=== PATIENT | female | born 1990 | race Caucasian/White ===

== ENCOUNTER 2017-04-08 14:01 | Emergency (ER) | payer MEDICAID ==
[~2017-04-08] VITALS: Wt 69.0 kg
[~2017-04-08 14:01] MED LIST: ACET500C5 PO; CEPH250S33 PO; ERYT1OIN6 LEFT EYE; IBUP-1542 PO; NITR-58 PO
[2017-04-08] MEDS ORDERED: ACETAMINOPHEN 325 MG TAB PO STA (14:25)
[2017-04-08] MEDS ORDERED: SOD CHLORIDE 0.9% 1,000 ML IV STA (14:25)
--- NOTE | 2017-04-08 14:32 | ERD ---
ER Documentation Chief Complaint Date/Time DATE: 04/08/17 Chief Complaint Abdominal pain HPI The patient is a 26-year-old female, A0, who presents to the Emergency Department with complaint of abdominal pain. Last menstrual period unknown, though patient believes that she is approximately 13-14 weeks . The patient reports that her pain started several days ago, with onset of abdominal pain localized to the periumbilical region. The pain is constant, and gradually worsening. She rates her current pain a 6 out of 10, but has not yet taken any medication for pain relief. She discussed presence of this pain with her primary medical provider/[facility]OR [facility] TERM CARE, but no workup was performed , as she was told that her pain was possibly normal. She denies any fevers, sweats, chills, vomiting, diarrhea. Denies any black or bloody stools. Denies dysuria, hematuria or flank pain. Denies any vaginal bleeding or new vaginal discharge. Denies dizziness, weakness, chest pain, palpitations, shortness of breath. No other complaints at this time. ROS All systems reviewed and are negative except as per history of present illness. Medications Home Meds Active Scripts Acetaminophen* (Tylenol*) 325 Mg Tablet, 1 TAB PO Q6 Y for PAIN AND OR ELEVATED TEMP, #20 TAB Prov:THIERRY MCCLELLAN PA-C 04/08/17 Famotidine* (Pepcid*) 20 Mg Tablet, 20 MG PO BID, #20 TAB Prov:THIERRY MCCLELLAN PA-C 04/08/17 Acetaminophen* (Tylophen*) 500 Mg Capsule, 1 CAP PO Q6H Y for PAIN AND OR ELEVATED TEMP, #20 CAP Prov:ANA ALVA NP 11/08/16 Nitrofurantoin Monohyd Macrocr* (Macrobid*) 100 Mg Capsr, 100 MG PO BID for 7 Days, CAP Prov:ANA ALVA NP 11/08/16 Erythromycin (Erythromycin Opth) 3.5 Gm Oint..gm., 1 APPLIC LEFT EYE QID for 7 Days, EA Prov:ELICEO WILHELM NP 05/04/16 Ibuprofen* (Motrin*) 600 Mg Tab, 600 MG PO Q6H Y for PAIN AND OR ELEVATED TEMP, #30 TAB Prov:ELICEO WILHELM NP 05/04/16 Cephalexin* (Cephalexin* Susp) 250 Mg/5 Ml Susp.recon, 500 MG PO Q6 for 10 Days , #1 BOTTLE Prov:ELICEO WILHELM HOLLY 05/04/16 Allergies Allergies: Coded Allergies: No Known Allergy (Unverified , 11/08/16) PMhx/Soc History of Surgery: No Anesthesia Reaction: No Hx Neurological Disorder: No Hx Respiratory Disorders: No Hx Cardiac Disorders: No Hx Psychiatric Problems: No Hx Miscellaneous Medical Probl: No Hx Alcohol Use: No Hx Substance Use: No Hx Tobacco Use: No Physical Exam Vitals Vital Signs Date Time Temp Pulse Resp B/P Pulse Ox O2 Delivery O2 Flow Rate FiO2 04/08/17 17:00 67 19 119/64 99 Room Air 04/08/17 14:05 98.5 81 20 110/52 98 Physical Exam GENERAL: Well-developed, well-nourished, in no acute distress HEENT: Head is normocephalic, atraumatic. No scleral pallor or icterus. Pupils equal, round and reactive to light. Conjunctiva pink. Moist mucous membranes. NECK: Supple. No masses, no tenderness, no lymphadenopathy. RESPIRATORY: Lungs are clear to auscultation bilaterally. No rales, rhonchi or wheezing. Equal breath sounds. Normal expiratory effort. CARDIOVASCULAR: Regular rate and rhythm. S1 and S2 normal. No murmurs, rubs, or gallops. GASTROINTESTINAL: Abdomen is soft and nondistended. Mild tenderness to palpation over the epigastrium and periumbilical region. No RUQ, LUQ, RLQ or LLQ tenderness. No guarding, no rebound tenderness. Normal bowel sounds. No gross peritonitis. Negative Manzano's sign. No tenderness at McBurney's point. FLANK: No CVA tenderness, no mass or swelling. BACK: No midline tenderness. EXTREMITIES: No clubbing, cyanosis, or edema. Normal skin perfusion. Full range of motion of both the upper and lower extremities bilaterally. Muscle tone is normal. No focal swelling or erythema. Distal pulses are palpable, 2+ bilaterally. Capillary refill is less than 2 seconds. NEUROLOGIC: The patient is alert, awake, and oriented x 3. No focal neurologic deficits. INTEGUMENT: Skin is clean, dry and intact. PSYCHIATRIC: Appropriate; Cooperative. Result Diagram: 04/08/17 1435 04/08/17 1435 Results 24 hrs Laboratory Tests Test 04/08/17 14:30 04/08/17 14:35 Urine Color LT. YELLOW Urine Clarity CLEAR Urine pH 5.5 Urine Specific [place] 1.010 Urine Ketones NEGATIVE Urine Nitrite NEGATIVE Urine Bilirubin NEGATIVE Urine Urobilinogen 0.2 E.U./dL Urine Leukocyte Esterase NEGATIVE Urine Hemoglobin NEGATIVE Urine Glucose NEGATIVE% Urine Total Protein NEGATIVE White Blood Count 9.110^3/ul Red Blood Count 4.5910^6/ul Hemoglobin 13.2g/dl Hematocrit 37.8% Mean Corpuscular Volume 82.4fl Mean Corpuscular Hemoglobin 28.8pg Mean Corpuscular Hemoglobin Concent 34.9g/dl Red Cell Distribution Width 11.8% Platelet Count 50575^3/UL Mean Platelet Volume 9.7fl Neutrophils % 79.3% Lymphocytes % 14.6% Monocytes % 4.9% Eosinophils % 0.5% Basophils % 0.3% Nucleated Red Blood Cells % 0.0/100WBC Neutrophils # 7.210^3/ul Lymphocytes # 1.310^3/ul Monocytes # 0.510^3/ul Eosinophils # 0.110^3/ul Basophils # 0.010^3/ul Nucleated Red Blood Cells # 0.010^3/ul Sodium Level 137mmol/L Potassium Level 3.7mmol/L Chloride Level 108mmol/L Carbon Dioxide Level 24mmol/L Anion Gap 9 Blood Urea Nitrogen 9mg/dl Creatinine 0.54mg/dl Glucose Level 110mg/dl Calcium Level 9.4mg/dl Total Bilirubin 0.3mg/dl Direct Bilirubin 0.00mg/dl Indirect Bilirubin 0.3mg/dl Aspartate Amino Transf (AST/SGOT) 28IU/L Alanine Aminotransferase (ALT/SGPT) 29IU/L Alkaline Phosphatase 83IU/L Total Protein 7.6g/dl Albumin 3.9g/dl Globulin 3.70g/dl Albumin/Globulin Ratio 1.05 Lipase 92U/L Beta HCG, Quantitative 69778.0mIU/ml Current Medications Medications (Trade) Dose Ordered Sig/Comfort Route PRN Reason Start Time Stop Time Status Last Admin Dose Admin Sodium Chloride (NS) 1,000 ml @ 1,000 mls/hr Q1H STAT IV 04/08/17 14:25 04/08/17 15:24 DC 04/08/17 14:36 Acetaminophen (Tylenol Tab) 650 mg ONCE STAT PO 04/08/17 14:25 04/08/17 14:27 DC 04/08/17 14:36 Procedures/MDM Diagnostic Tests and Interpretation: PROCEDURE: US Abdomen. CLINICAL INDICATION: Abdominal pain. TECHNIQUE: Multiple real-time images were acquired of the patient's abdomen and retroperitoneum utilizing a high resolution transducer. COMPARISON: None FINDINGS: The liver measures 14.8 cm in length. No pancreatic mass or intrahepatic biliary ductal dilatation is identified. The gallbladder wall measures 1 mm and is unremarkable. The hepatic and portal veins are patent. The liver is echogenic. The common bile duct measured 3.6 mm which is normal. The inferior vena cava is patent. The pancreas is obscured by bowel gas. The right kidney measures 9.5 cm in length. IMPRESSION: 1. Increased echogenicity of the liver is noted and most commonly as a result of fatty infiltration. Steatohepatitis, vacuolar degeneration and cirrhosis of the liver are other causes. 2. Otherwise, unremarkable limited abdominal sonogram. Physician Kelly Date Time Electronically viewed and signed by Physician Kelly on 04/08/2017 15:21 Emergency Department Course: The patient was stable throughout the ER course. The patient was given Tylenol for pain control. Laboratory work and diagnostic imaging was performed. On reassessment, the patient was sitting comfortably and stated that she no longer had any pain. The case was reviewed and discussed with Dr. Garcia, ED supervising physician, who evaluated the patient bedside and agrees with management and plan for discharge home. Medical Decision Making: This is a 26-year-old female presenting to the Emergency Department with abdominal pain. The patient had mild tenderness to palpation of the epigastric and periumbilical abdomen on physical examination. Vital signs were normal. The differential diagnosis includes, but is not limited to molar , thyrotoxicosis, cholecystitis, ectopic , gastroenteritis, pancreatitis, appendicitis, hepatitis, peptic ulcer disease, pyelonephritis, HELLP syndrome, urinary tract infection, depression, septic , ovarian torsion, endometriosis, PID, cervicitis, ovarian cyst. No significant laboratory abnormalities were noted on analysis. Urinalysis with no nitrties, no urine leukocyte esterase, no evidence of urinary tract infection or pyelonephritis. Patient with no lower abdominal pain, no pelvic pain, no new discharge, doubt TOA, PID, cervicitis. No tenderness at McBurney' s point or in the RLQ, no fevers, no vomiting, doubt appendicitis. Placenta previa noted on ultrasound, though likely not the cause of the patient's symptoms. Otherwise, no evidence of torsion and clinical presentation inconsistent with torsion/cyst. Negative Manzano's sign, no RUQ tenderness, no evidence of gallstones, doubt cholecystitis, cholangitis, choledocholithiasis. Presentation/results not consistent with HELLP or preeclampsia. LFTs within normal limits, doubt hepatitis. Lipase normal, doubt pancreatitis. No vomiting or diarrhea, doubt gastroenteritis. No adnexal masses seen, presentation not consistent with ectopic . No evidence of acute/surgical abdomen. After rest and administration of Tylenol the patient reports no new complaints, and decreased pain. Upon my review and interpretation of the patient's presentation , clinical data, and overall ER course, I believe the patient's symptoms are most consistent with abdominal pain, uncertain etiology, placenta previa, and live first trimester intrauterine . At this time, the patient is in stable condition, and therefore she can be discharged home with a prescription for Tylenol and Pepcid and given strict return precautions for signs of deteriorating or worsening condition. The patient is advised to follow up with her [facility]OR [facility]M CARE within 1-2 days for reevaluation and further management, or return to the ER sooner for any worsening symptoms. I shared all laboratory and diagnostic imaging studies with the patient at length and in great detail, and the patient verbally understands and agrees with the plan for further observation and care as an outpatient. At the time of discharge, all questions were answered. Departure Diagnosis: Primary Impression: Abdominal pain in Trimester: first trimester Qualified Code: O26.891 - Abdominal pain in , first trimester Additional Impression: Placenta previa Trimester: first trimester Qualified Code: O44.01 - Placenta previa, first trimester Condition: Stable Patient Instructions: Abdominal Pain, Abdominal Pain, Unknown Cause, (Female) Additional Instructions: Llame al doctor SHARON y kelly zack ERICK PARA DENTRO DE 1-2 COONEY.Dgale a la secretaria que nosotros le instruimos hacer esta erick.Avise o llame si amezquita condicin se empeora antes de la erick. Regresa aqui si peor o no mejor. THIERRY MCCLELLAN PA-C April 08, 2017 14:32
[2017-04-08 14:52] LABS: ADD SCAN DIFF NO
[2017-04-08 14:54] LABS: BASOPHILS % 0.3 % (0.0-2.0); EOSINOPHILS # 0.1 10^3/ul (0.0-0.5); EOSINOPHILS % 0.5 % (0.0-7.0); HEMATOCRIT 37.8 % (37.0-47.0); HEMOGLOBIN 13.2 g/dl (12.0-16.0); LYMPHOCYTES # 1.3 10^3/ul (0.8-2.9); LYMPHOCYTES % 14.6 % (15.0-51.0); MEAN CORPUSCULAR HEMOGLOBIN 28.8 pg (29.0-33.0); MEAN CORPUSCULAR HGB CONC 34.9 g/dl (32.0-37.0); MEAN CORPUSCULAR VOLUME 82.4 fl (82.0-101.0); MEAN PLATELET VOLUME 9.7 fl (7.4-10.4); MONOCYTE # 0.5 10^3/ul (0.3-0.9); MONOCYTES % 4.9 % (0.0-11.0); NEUTROPHIL # 7.2 10^3/ul (1.6-7.5); NEUTROPHILS % 79.3 % (39.0-77.0); PLATELET COUNT 257 10^3/UL (140-415); RED BLOOD COUNT 4.59 10^6/ul (4.20-5.40); RED CELL DISTRIBUTION WIDTH 11.8 % (11.5-14.5); WHITE BLOOD COUNT 9.1 10^3/ul (4.8-10.8)
[2017-04-08 15:01] LABS: ADD UMIC NO; URINE BILIRUBIN (Dip) NEGATIVE (NEGATIVE); URINE BLOOD (Dip) NEGATIVE (NEGATIVE); URINE COLOR LT. YELLOW (YELLOW); URINE GLUCOSE (Dip) NEGATIVE (NEGATIVE); URINE KETONES (Dip) NEGATIVE (NEGATIVE); URINE LEUKOCYTE ESTERASE (Dip) NEGATIVE (NEGATIVE); URINE NITRITE (Dip) NEGATIVE (NEGATIVE); URINE TOTAL PROTEIN (Dip) NEGATIVE (NEGATIVE); URINE UROBILINOGEN (Dip) 0.2 E.U./dL (0.1-1.0)
[2017-04-08 15:10] LABS: ALBUMIN 3.9 g/dl (3.3-4.9); POTASSIUM 3.7 mmol/L (3.5-5.1)
[2017-04-08 15:12] LABS: BILIRUBIN,INDIRECT 0.3 mg/dl (0-1.1); BILIRUBIN,TOTAL 0.3 mg/dl (0.2-1.3); CREATININE 0.54 mg/dl (0.44-1.00)
[2017-04-08 15:13] LABS: ALBUMIN/GLOBULIN RATIO 1.05; CALCIUM 9.4 mg/dl (8.4-10.2); TOTAL PROTEIN 7.6 g/dl (6.1-8.1)
--- NOTE | 2017-04-08 15:21 | RADRPT ---
PROCEDURE: US Abdomen. CLINICAL INDICATION: Abdominal pain. TECHNIQUE: Multiple real-time images were acquired of the patient's abdomen and retroperitoneum ut ilizing a high resolution transducer. COMPARISON: None FINDINGS: The liver measures 14.8 cm in length. No pancreatic mass or intrahepatic biliary ductal dilatation is identified. The gallbladder wall measures 1 mm and is unremarkable. The hepatic and portal vein s are patent. The liver is echogenic. The common bile duct measured 3.6 mm which is normal. The inferior vena cava is patent. The pancreas is obscured by bowel gas. The right kidney measures 9.5 cm in length. IMPRESSION: 1. Increased echogenicity of the liver is noted and most commonly as a result of fatty infiltration. Steatohepatitis, vacuolar degeneration and cirrhosis of the liver are other causes. 2. Otherwise, unremarkable limited abdominal sonogram. RPTAT:AAJJ Physician Kelly Date Time Electronically viewed and signed by Physician Kelly on 04/08/2017 15:21 SATNAM/
[2017-04-08] MEDS ORDERED: FAMO-18 PO (16:38)
[2017-04-08] MEDS ORDERED: ACET325T33 PO (16:38)
[2017-04-08 17:00] VITALS: BP 119/64; PULSE 67; RESP 19
== END 2017-04-08 17:01 | disposition home or self-care (01) ==
LOC: FTE 14:01
DX: O26.891 Other specified pregnancy related conditions, first trimester (principal); O44.01 Complete placenta previa NOS or without hemorrhage, first trimester; R10.33 Periumbilical pain; R10.13 Epigastric pain; Z3A.13 13 weeks gestation of pregnancy
CPT/HCPCS: 76705; 76801; 76817; 80053; 81003; 83690; 84702; 85025; 87086; J7030; Z7610; 36415

== ENCOUNTER 2017-07-24 06:30 | Outpatient (CLI) | payer MEDICAID ==
[~2017-07-24] VITALS: Ht 142.2 cm; Wt 63.4 kg
[~2017-07-24 06:30] MED LIST changes: +ACET325T33 PO; +FAMO-96 PO
[2017-07-24 07:09] VITALS: BP 93/48; PULSE 66; RESP 18
[2017-07-24] MEDS ORDERED: PREN-19 PO (07:13)
[2017-07-24] MEDS ORDERED: LACTATED RINGER'S 1,000 ML IV* SCH (08:00)
[2017-07-24 08:29] LABS: BASOPHILS % 0.3 % (0.0-2.0); EOSINOPHILS # 0.1 10^3/ul (0.0-0.5); EOSINOPHILS % 0.7 % (0.0-7.0); HEMATOCRIT 36.1 % (37.0-47.0); HEMOGLOBIN 12.1 g/dl (12.0-16.0); LYMPHOCYTES # 1.6 10^3/ul (0.8-2.9); LYMPHOCYTES % 15.6 % (15.0-51.0); MEAN CORPUSCULAR HEMOGLOBIN 29.5 pg (29.0-33.0); MEAN CORPUSCULAR HGB CONC 33.5 g/dl (32.0-37.0); MEAN PLATELET VOLUME 10.7 fl (7.4-10.4); MONOCYTE # 0.6 10^3/ul (0.3-0.9); MONOCYTES % 6.1 % (0.0-11.0); NEUTROPHILS % 75.7 % (39.0-77.0); PLATELET COUNT 205 10^3/UL (140-415); RED CELL DISTRIBUTION WIDTH 12.2 % (11.5-14.5); WHITE BLOOD COUNT 10.1 10^3/ul (4.8-10.8)
[2017-07-24 08:58] LABS: ADD UMIC NO; UR ASCORBIC ACID NEGATIVE (NEGATIVE); UR BILIRUBIN (Dip) NEGATIVE (NEGATIVE); UR BLOOD (Dip) NEGATIVE (NEGATIVE); UR CLARITY SLIGHTLY CLOUDY (CLEAR); UR COLOR YELLOW (YELLOW); UR GLUCOSE (Dip) NEGATIVE (NEGATIVE); UR KETONES (Dip) NEGATIVE (NEGATIVE); UR LEUKOCYTE ESTERASE (Dip) NEGATIVE Leu/ul (NEGATIVE); UR MUCUS FEW /HPF (NONE SEEN); UR NITRITE (Dip) NEGATIVE (NEGATIVE); UR RBC 1 /HPF (0-5); UR SPECIFIC GRAVITY (Dip) 1.026 (1.003-1.030); UR SQUAMOUS EPITHELIAL CELL FEW /HPF (FEW); UR TOTAL PROTEIN (Dip) NEGATIVE (NEGATIVE); UR UROBILINOGEN (Dip) NEGATIVE (NEGATIVE)
--- NOTE | 2017-07-24 09:24 | RADRPT ---
PROCEDURE: Limited obstetric ultrasound CLINICAL INDICATION: Pain , labor TECHNIQUE: Multiple transverse and longitudinal grayscale images of the pelvis were obtained cabrera sabdominally and transvaginally.. COMPARISON: 04/08/2017 FINDINGS: The cervix is closed with a length of 3.7 cm. There is a single viable intrauterine gestation. Cardiac activity is present with 135 beats per min [place]. There is a breech presentation. The placenta is posterior. There is no evidence for an abruption or placenta previa. RPTAT: AA IMPRESSION: Cervix length measures 3.7 cm. .Deniz Abreu MD, MD Date Time Electronically viewed and signed by .Deniz Abreu MD, on 07/24/2017 09:24 .S/
--- NOTE | 2017-07-24 10:55 | TRIAGE ---
OB Triage Datetime Report Generated by CPN: 07/24/2017 10:54 Datetime: 07/24/2017 10:00 Stage of : OB Triage Maternal Assessment Level of Consciousness: Fully Conscious Labor Evaluation Frequency: 1UC/HR Monitor Mode: External Duration (sec)2399: 70 Quality: Mild Resting Tone [place]: Relaxed Heart Rate FHR Baseline Rate: 135 Monitor Mode: External US Variability: Moderate 6-25 bpm Accelerations: 15X15 Decelerations: None Pain Assessment Pain Scale: 0 Pain Goal: 3 Vaginal Exam Membrane Status: Intact Vaginal Bleeding: None Datetime: 07/24/2017 09:00 Stage of : OB Triage Maternal Assessment Level of Consciousness: Fully Conscious Labor Evaluation Frequency: 3UC/HR Monitor Mode: External Duration (sec)2399: 60-90 Quality: Mild Resting Tone [place]: Relaxed Heart Rate FHR Baseline Rate: 135 Monitor Mode: External US Variability: Moderate 6-25 bpm Accelerations: 15X15 Decelerations: None Pain Assessment Pain Scale: 0 Pain Goal: 3 Vaginal Exam Membrane Status: Intact Vaginal Bleeding: None Datetime: 07/24/2017 08:00 Stage of : OB Triage Maternal Assessment Level of Consciousness: Fully Conscious Labor Evaluation Frequency: 4UC/HR Monitor Mode: External Duration (sec)2399: 50-70 Quality: Mild Resting Tone [place]: Relaxed Heart Rate FHR Baseline Rate: 135 Monitor Mode: External US Variability: Moderate 6-25 bpm Accelerations: 15X15 Decelerations: None Category: Category I Pain Assessment Pain Scale: 0 Pain Goal: 3 Vaginal Exam Membrane Status: Intact Vaginal Bleeding: None Datetime: 07/24/2017 06:58 Assessment Type: Triage Maternal Assessment Level of Consciousness: Fully Conscious DTR's/Clonus: DTRs 1+; No Clonus Headache: Denies Blurred Vision: No Respiratory Effort: Unlabored Breath Sounds, Left: Clear and Equal Breath Sounds, Right: Clear and Equal Nausea/Vomiting: Denies RUQ Epigastric Pain: Denies Lower Extremities Edema: None Degree: None Upper Extremities Edema: None Degree: None Facial Edema: None Fall Risk Assessment History of Falling: (0) No Secondary Diagnosis: (0) No Ambulatory Aid: (0) Bedrest/Nurse Assist IV Therapy: (0) No Gait: (0) Normal/Bedrest/Immobile Mental Status: (0) Oriented to Own Ability Fall Score: 0 Fall Risk Score Definition: No Risk: No action required Datetime: 07/24/2017 06:56 Time of Arrival: 07/24/2017 06:35 EGA: 29.4 Arrived By: Ambulatory Arrived From: Home Chief Complaint: ABD PAIN Movement: Present Contractions: Denies/Absent Rupture of Membranes: Denies Vaginal Bleeding: None Vaginal Discharge: Denies Recent Sexual Intercouse: Denies Abdominal Trauma: Not Applicable Patient Complaints: Other Time Provider Notified: 07/24/2017 07:32 Provider Notified: MADELINEAD (Annotations: Data stored by CPN on behalf of user) Initial Plan: EFM, FFN, CVL, UA, CBC, IV HYDRATION Datetime: 07/24/2017 06:51 Stage of : OB Triage Monitor Mode: External Monitor Mode: External US Comments: applied Datetime: 07/24/2017 06:47 Stage of : OB Triage
--- NOTE | 2017-07-24 10:58 | PN ---
Triage Information Date/Time Reason for visit: Abd/pelvic pain Weeks of Gestation 29 weeks /Para Diabetes: none Hypertention: none Objective Vital Signs Date Time Temp Pulse Resp B/P Pulse Ox O2 Delivery O2 Flow Rate FiO2 07/24/17 07:09 98.1 66 18 93/48 Room Air Heart Rate: 120's Heart Rate Comments Category I Contractions: >10 Minutes Apart Results/Medications Result Diagram: 07/24/17 0750 Results 24 hrs Laboratory Tests Test 07/24/17 06:40 07/24/17 07:50 Urine Color YELLOW Urine Clarity SLIGHTLY CLOUDY A Urine pH 6.0 Urine Specific [place] 1.026 Urine Ketones NEGATIVE Urine Nitrite NEGATIVE Urine Bilirubin NEGATIVE Urine Urobilinogen NEGATIVE Urine Leukocyte Esterase NEGATIVE Urine Microscopic RBC 1 Urine Microscopic WBC 3 Urine Squamous Epithelial Cells FEW Urine Mucus FEW A Urine Hemoglobin NEGATIVE Urine Glucose NEGATIVE Urine Total Protein NEGATIVE White Blood Count 10.1 Red Blood Count 4.10 L Hemoglobin 12.1 Hematocrit 36.1 L Mean Corpuscular Volume 88.0 Mean Corpuscular Hemoglobin 29.5 Mean Corpuscular Hemoglobin Concent 33.5 Red Cell Distribution Width 12.2 Platelet Count 205 # Mean Platelet Volume 10.7 H Neutrophils % 75.7 Lymphocytes % 15.6 Monocytes % 6.1 Eosinophils % 0.7 Basophils % 0.3 Nucleated Red Blood Cells % 0.0 Neutrophils # (Manual) 7.6 H Lymphocytes # 1.6 Monocytes # 0.6 Eosinophils # 0.1 Basophils # 0.0 Nucleated Red Blood Cells # 0.0 Medications Current Medications Lactated Ringer's (Lr) 1,000 ml @ 150 mls/hr Q6H40M IV* Last administered on t 09:02; Admin Dose 150 MLS/HR; Start 07/24/17 at 08:00 Imaging Results Cervical length 3.7 cm Disposition: Discharge Assessment/Plan After rest, patient feels better. No sign of PTL. D/C home. EMRE TAVERA MD Jul 24, 2017 10:58
[2017-07-25] MEDS ORDERED: ACET500C5 PO (22:00)
== END 2017-07-24 11:55 | disposition home or self-care (01) ==
LOC: OBT 06:30 → L-D 06:30 → OBT 11:55
PROVIDERS: ATTEND Obstetrics & Gynecology
DX: O26.893 Other specified pregnancy related conditions, third trimester (principal); Z3A.29 29 weeks gestation of pregnancy
CPT/HCPCS: 76817; 81001; 85025; J7120; Z7500; 81003; G0463

== ENCOUNTER 2017-07-25 15:38 | Outpatient (CLI) | payer MEDICAID ==
[~2017-07-25] VITALS: Ht 149.9 cm; Wt 63.2 kg
[~2017-07-25 15:38] MED LIST changes: +PREN-19 PO
[2017-07-25 16:04] VITALS: BP 99/57; PULSE 78; RESP 20
[2017-07-25 16:05] VITALS: Ht 149.9 cm; Wt 63.2 kg
[2017-07-25] MEDS ORDERED: ACETAMINOPHEN 325 MG TAB PO PRN (17:00)
--- NOTE | 2017-07-25 17:49 | RADRPT ---
PROCEDURE: CERVICAL LENGTH ULTRASOUND CLINICAL INDICATION: labor and 29 weeks gestational age. TECHNIQUE: Trans-vaginal imaging of the cervical canal was performed utilizing larsen-scale imaging. Sagittal and transverse images were obtained. Trans-abdominal images were also obtained. The cassandra ges were reviewed on a PACS workstation. COMPARISON: 07/24/2017. FINDINGS: There is a single live intrauterine . heart rate is 144 beats per minute. Position is cephalic and placenta is posterior grade 1. There is no placenta previa. The cervix is closed with a length of 3.8 cm. IMPRESSION: 1. Cervical length is 3.8 cm. RPTAT: QQ .Kendell Juarez MD, Date Time Electronically viewed and signed by .Kendell Juarez MD, on 07/25/2017 17:49 .R/
[2017-07-25 18:34] LABS: ADD UMIC NO; UR ASCORBIC ACID NEGATIVE (NEGATIVE); UR BILIRUBIN (Dip) NEGATIVE (NEGATIVE); UR BLOOD (Dip) NEGATIVE (NEGATIVE); UR CLARITY CLEAR (CLEAR); UR COLOR STRAW (YELLOW); UR GLUCOSE (Dip) NEGATIVE (NEGATIVE); UR KETONES (Dip) NEGATIVE (NEGATIVE); UR LEUKOCYTE ESTERASE (Dip) NEGATIVE Leu/ul (NEGATIVE); UR NITRITE (Dip) NEGATIVE (NEGATIVE); UR SPECIFIC GRAVITY (Dip) 1.005 (1.003-1.030); UR TOTAL PROTEIN (Dip) NEGATIVE (NEGATIVE); UR UROBILINOGEN (Dip) NEGATIVE (NEGATIVE)
--- NOTE | 2017-07-25 20:11 | PN ---
Triage Information Date/Time Reason for visit: Abd/pelvic pain Weeks of Gestation 29 weeks /Para Diabetes: none Hypertention: none Objective Vital Signs Date Time Temp Pulse Resp B/P Pulse Ox O2 Delivery O2 Flow Rate FiO2 07/25/17 16:04 98.0 78 20 99/57 Room Air Heart Rate: 130's Heart Rate Comments Category I Contractions: None Results/Medications Results 24 hrs Laboratory Tests Test 07/25/17 18:05 Urine Color STRAW Urine Clarity CLEAR Urine pH 7.0 Urine Specific [place] 1.005 Urine Ketones NEGATIVE Urine Nitrite NEGATIVE Urine Bilirubin NEGATIVE Urine Urobilinogen NEGATIVE Urine Leukocyte Esterase NEGATIVE Urine Hemoglobin NEGATIVE Urine Glucose NEGATIVE Urine Total Protein NEGATIVE Medications Current Medications Acetaminophen (Tylenol Tab) 650 mg Q4H PRN PO PAIN AND OR ELEVATED TEMP; Start 07/25/17 at 17:00 Imaging Results Cervical length normal Disposition: Assessment/Plan Patient with low back pain making it difficult to ambulate. Patient cleared from OB standpoint. Transfer to ED for further evaluation. EMRE TAVERA MD Jul 25, 2017 20:11
[2017-07-25] MEDS ORDERED: ACET500C5 PO (22:00)
== END 2017-07-25 20:30 | disposition home or self-care (01) ==
LOC: OBT 15:38 → OBG 15:40 → OBT 20:30
PROVIDERS: ATTEND Obstetrics & Gynecology
DX: O26.893 Other specified pregnancy related conditions, third trimester (principal); Z3A.29 29 weeks gestation of pregnancy; M54.5 Low back pain
CPT/HCPCS: 76817; 81003; Z7500; G0463

== ENCOUNTER 2017-07-25 20:33 | Emergency (ER) | payer MEDICAID ==
[~2017-07-25] VITALS: Ht 152.4 cm; Wt 59.1 kg
[~2017-07-25 20:33] MED LIST changes: -ACET325T33 PO; -ACET500C5 PO; -CEPH250S33 PO; -ERYT1OIN6 LEFT EYE; -FAMO-96 PO; -IBUP-1542 PO; -NITR-58 PO
[2017-07-25 20:41] VITALS: Ht 152.4 cm; Wt 59.1 kg
[2017-07-25] MEDS ORDERED: ACETAMINOPHEN 325 MG TAB PO ONE (21:00)
[2017-07-25] MEDS ORDERED: ACET500C5 PO (22:00)
--- NOTE | 2017-07-25 22:04 | ERD ---
ER Documentation Chief Complaint Date/Time DATE: 07/25/17 TIME: 22:02 Chief Complaint bilat leg pain x 1 day; no trauma experienced; cleared by engineering writer HPI This 26-year-old female with second trimester presents with low back pain rating the bilateral legs. Started after lying on exam table at her doctor 's office and when she arose she had sudden onset of pain. She denies any bowel bladder incontinence or anesthesia. She denies abdominal pain or vaginal bleeding. She denies any fever or urinary complaints. The pain extends from her buttocks down to her bilateral calves. ROS All systems reviewed and are negative except as per history of present illness. Medications Home Meds Active Scripts Acetaminophen* (Tylophen*) 500 Mg Capsule, 1 CAP PO Q6H Y for PAIN AND OR ELEVATED TEMP, #20 CAP Prov:GARRET CONNER MD 07/25/17 Reported Medications Vit #76/Iron,Carb/FA (Prenatabs Rx Tablet) 1 Each Tablet, 1 EACH PO DAILY, TAB 07/24/17 Discontinued Scripts Acetaminophen* (Tylenol*) 325 Mg Tablet, 1 TAB PO Q6 Y for PAIN AND OR ELEVATED TEMP, #20 TAB Prov:THIERRY MCCLELLAN PA-C 04/08/17 Famotidine* (Pepcid*) 20 Mg Tablet, 20 MG PO BID, #20 TAB Prov:THIERRY MCCLELLAN PA-C 04/08/17 Acetaminophen* (Tylophen*) 500 Mg Capsule, 1 CAP PO Q6H Y for PAIN AND OR ELEVATED TEMP, #20 CAP Prov:ANA ALVA NP 11/08/16 Nitrofurantoin Monohyd Macrocr* (Macrobid*) 100 Mg Capsr, 100 MG PO BID for 7 Days, CAP Prov:ANA ALVA NP 11/08/16 Erythromycin (Erythromycin Opth) 3.5 Gm Oint..gm., 1 APPLIC LEFT EYE QID for 7 Days, EA Prov:ELICEO WILHELM NP 05/04/16 Ibuprofen* (Motrin*) 600 Mg Tab, 600 MG PO Q6H Y for PAIN AND OR ELEVATED TEMP, #30 TAB Prov:ELICEO WILHELM NP 05/04/16 Cephalexin* (Cephalexin* Susp) 250 Mg/5 Ml Susp.recon, 500 MG PO Q6 for 10 Days , #1 BOTTLE Prov:ELICEO WILHELM PLANNING ASSOCIATE 05/04/16 Allergies Allergies: Coded Allergies: No Known Drug Allergies (Verified Allergy, Unknown, 07/25/17) PMhx/Soc History of Surgery: No Anesthesia Reaction: No Hx Neurological Disorder: No Hx Respiratory Disorders: No Hx Cardiac Disorders: No Hx Psychiatric Problems: No Hx Miscellaneous Medical Probl: No Hx Alcohol Use: No Hx Substance Use: No Hx Tobacco Use: No Smoking Status: Never smoker Physical Exam Vitals Vital Signs Date Time Temp Pulse Resp B/P Pulse Ox O2 Delivery O2 Flow Rate FiO2 07/25/17 20:41 98.5 72 18 91/55 100 Physical Exam Const: []Alert, [id number]. Head: Atraumatic Eyes: Normal Conjunctiva ENT: Normal External Ears, Nose and Mouth. Neck: Full range of motion..~ No meningismus. Resp: Clear to auscultation bilaterally Cardio: Regular rate and rhythm, no murmurs Abd: Soft, non tender, non distended. Normal bowel sounds Skin: No petechiae or rashes Back: No midline or flank tenderness. Mild paraspinous tenderness in the lumbar and sacral area. No midline tenderness. Mildly positive straight leg raise bilaterally. Ext: No cyanosis, or edema. Minimal tenderness in bilateral calves without swelling. Neur: Awake and alert Psych: Normal Mood and Affect Results 24 hrs Current Medications Medications (Trade) Dose Ordered Sig/Comfort Route PRN Reason Start Time Stop Time Status Last Admin Dose Admin Acetaminophen (Tylenol Tab) 650 mg ONCE ONCE PO 07/25/17 21:00 07/25/17 21:02 DC 07/25/17 21:28 Procedures/MDM Patient was given Tylenol for pain. Patient was noted to be able to ambulate although with some guarding and discomfort. Patient has no evidence of neurologic deficits. Bilateral lower extremity Doppler shows no evidence of DVT. Patient presents with low back pain rating the bilateral legs after going from lying to sitting today. There is no evidence to suggest cauda equina syndrome, neurologic deficit, bacterial infection, acute complications of . She likely has sciatica or muscle skeletal low back pain will be treated with Tylenol, and back exercises and primary care follow-up and return precautions. The patient was stable with no new complaints during the ER course. Clinically, there is no current evidence to suggest meningitis, sepsis, acute abdomen, pneumonia, acute coronary syndrome, pulmonary embolism, or any other emergent condition appearing to require further evaluation or hospitalization. The patient should certainly return for any new or worsening symptoms per the aftercare instructions. They should otherwise follow-up with her primary care doctor for reevaluation this week. Departure Diagnosis: Primary Impression: Back pain Back pain location: low back pain Chronicity: acute Back pain laterality: bilateral Sciatica presence: with sciatica Sciatica laterality: bilateral sciatica Qualified Code: M54.42 - Acute bilateral low back pain with bilateral sciatica Condition: Stable Patient Instructions: Back Exercises, Lumbar, Back Pain W/ Sciatica Additional Instructions: Examines normal hoy. PROBABLAMENTE DEL ESPALDA. Cheque otro vez con amezquita doctor primario en el proximo ramirez or regresa para mas o nueva simptomas. GARRET CONNER MD Jul 25, 2017 22:04
--- NOTE | 2017-07-25 22:32 | RADRPT ---
PROCEDURE: US venous lower extremities bilaterally. CLINICAL INDICATION: Bilateral lower extremity pain. TECHNIQUE: Sonographic evaluation of the lower extremities with compression, augmentation, and colo r Doppler imaging was performed. COMPARISON: None available. FINDINGS: Right lower extremity: Common femoral vein: Normal flow. Compressible and augmentable. Proximal superficial femoral vein: Normal flow. Compressible and augmentable. Mid superficial femoral vein: Normal flow. Compressible and augmentable. Distal superficial femoral vein: Normal flow. Compressible and augmentable. Popliteal vein: Normal flow. Compressible and augmentable. Calf veins: Normal flow. Left lower extremity: Common femoral vein: Normal flow. Compressible and augmentable. Proximal superficial femoral vein: Normal flow. Compressible and augmentable. Mid superficial femoral vein: Normal flow. Compressible and augmentable. Distal superficial femoral vein: Normal flow. Compressible and augmentable. Popliteal vein: Normal flow. Compressible and augmentable. Calf veins: Normal flow. IMPRESSION: 1. No evidence of deep vein thrombosis in the lower extremities bilaterally. RPTAT: HLBP .Jose Youngblood MD, MD Date Time Electronically viewed and signed by .Jose Youngblood MD, MD on 07/25/2017 22:32 .P/
== END 2017-07-25 22:30 | disposition home or self-care (01) ==
LOC: FTE 20:33
DX: M54.42 Lumbago with sciatica, left side (principal)
CPT/HCPCS: 93970; Z7502; Z7610; 99283

== ENCOUNTER 2017-08-24 16:28 | Outpatient (CLI) | payer MEDICAID ==
[~2017-08-24] VITALS: Ht 142.2 cm; Wt 64.8 kg
[~2017-08-24 16:28] MED LIST changes: +ACET500C5 PO
[2017-08-24 17:00] VITALS: BP 89/52; PULSE 66; RESP 18
[2017-08-24] MEDS ORDERED: LACTATED RINGER'S 1,000 ML IV* PRN (18:00)
[2017-08-24] MEDS ORDERED: TERBUTALINE 1 MG/ML INJ SC PRN (18:00)
--- NOTE | 2017-08-24 18:25 | RADRPT ---
PROCEDURE: Biophysical profile CLINICAL INDICATION: distress. labor. TECHNIQUE: Color and larsen-scale ultrasound images of an intrauterine gestation were obtained. COMPARISON: None FINDINGS: A single live intrauterine gestation is identified in cephalic position with an estimated hear t rate of 143 beats per minute. The placenta is located finally to the right. The placenta has a gr tariq III.. The cervix is closed and measures approximately 2.7 cm in length.. No evidence of previa or abruption identified. CHRISTOPHER is 13.1 cm. movement 2/2. tone 2/2. breathing movement 2/2. Qualitative AFV 2/2 Total biophysical profile 06/20 IMPRESSION: 06/20 biophysical profile. RPTAT: AA .Kyler Loo MD, MD Date Time Electronically viewed and signed by .Kyler Loo MD, MD on 08/24/2017 18:24 .P/
[2017-08-24 18:47] LABS: ADD UMIC NO; UR ASCORBIC ACID NEGATIVE (NEGATIVE); UR BILIRUBIN (Dip) NEGATIVE (NEGATIVE); UR BLOOD (Dip) NEGATIVE (NEGATIVE); UR CLARITY CLEAR (CLEAR); UR COLOR STRAW (YELLOW); UR GLUCOSE (Dip) NEGATIVE (NEGATIVE); UR KETONES (Dip) NEGATIVE (NEGATIVE); UR LEUKOCYTE ESTERASE (Dip) NEGATIVE Leu/ul (NEGATIVE); UR NITRITE (Dip) NEGATIVE (NEGATIVE); UR SPECIFIC GRAVITY (Dip) 1.005 (1.003-1.030); UR TOTAL PROTEIN (Dip) NEGATIVE (NEGATIVE); UR UROBILINOGEN (Dip) NEGATIVE (NEGATIVE)
--- NOTE | 2017-08-24 23:48 | PN ---
Triage Information Date/Time 08/24/1710/29/2340 Reason for visit: Uterine contractions Weeks of Gestation 34weeks /Para Diabetes: none Hypertention: none Objective Vital Signs Date Time Temp Pulse Resp B/P Pulse Ox O2 Delivery O2 Flow Rate FiO2 08/24/17 17:00 98.5 66 18 89/52 97 Room Air Heart Rate: 130's Contractions: >10 Minutes Apart Exam cl/long/-3 FFN neg Results/Medications Results 24 hrs Laboratory Tests Test 08/24/17 17:00 08/24/17 18:05 Urine Color STRAW Urine Clarity CLEAR Urine pH 7.0 Urine Specific [place] 1.005 Urine Ketones NEGATIVE Urine Nitrite NEGATIVE Urine Bilirubin NEGATIVE Urine Urobilinogen NEGATIVE Urine Leukocyte Esterase NEGATIVE Urine Hemoglobin NEGATIVE Urine Glucose NEGATIVE Urine Total Protein NEGATIVE Fibronectin NEGATIVE Medications none Imaging Results BPP 06/20 AFi13.1 CVL 2.7 Disposition: Discharge Assessment/Plan IUP 34weeks NIL PLAN discharge home RTH prn CADE DELAROSA MD Aug 24, 2017 23:48
--- NOTE | 2017-08-25 00:42 | TRIAGE ---
OB Triage Datetime Report Generated by CPN: 08/25/2017 00:42 Datetime: 08/24/2017 20:58 Stage of : OB Triage Labor Evaluation Frequency: 9-15 Monitor Mode: External Quality: Mild Pattern: Normal: <= 5 Contractions in 10 Minutes Resting Tone [place]: Relaxed Heart Rate FHR Baseline Rate: 140 Monitor Mode: External US FHR Baseline Changes: No Baseline Change Variability: Moderate 6-25 bpm Accelerations: 15X15 Decelerations: None Category: Category I Pain Assessment Pain Scale: 0 Pain Presence: None/Denies Pain Type: N/A Datetime: 08/24/2017 20:13 Stage of : OB Triage Monitor Mode: External Resting Tone [place]: Relaxed Heart Rate FHR Baseline Rate: 140 Monitor Mode: External US Datetime: 08/24/2017 19:27 Stage of : OB Triage Datetime: 08/24/2017 19:21 FHR Baseline Changes: Tachycardia Datetime: 08/24/2017 18:58 Labor Evaluation Frequency: 2-13 Monitor Mode: External Duration (sec)2399: 50-80 Quality: Mild Pattern: Normal: <= 5 Contractions in 10 Minutes Resting Tone [place]: Relaxed Heart Rate FHR Baseline Rate: 145 Monitor Mode: External US FHR Baseline Changes: No Baseline Change Variability: Moderate 6-25 bpm Accelerations: 15X15 Decelerations: None Pain Assessment Pain Scale: 5 Pain Presence: Intermittent Pain Type: Contraction Pain Location: Abdomen Datetime: 08/24/2017 18:09 Vaginal Exam Dilatation (cms): 0.0 Exam By: CK Datetime: 08/24/2017 17:58 Labor Evaluation Frequency: 11-14 Monitor Mode: External Duration (sec)2399: 60-90 Quality: Mild Pattern: Normal: <= 5 Contractions in 10 Minutes Resting Tone [place]: Relaxed Heart Rate FHR Baseline Rate: 135 Monitor Mode: External US FHR Baseline Changes: No Baseline Change Variability: Moderate 6-25 bpm Accelerations: 15X15 Decelerations: Variable Comments: Vx1 Datetime: 08/24/2017 17:13 Time of Arrival: 08/24/2017 16:18 EGA: 34.0 Arrived By: Wheelchair Arrived From: Office Chief Complaint: R/0 PTL Movement: Present Contractions: Occasional Time Contractions Began: 08/23/2017 08:00 Contractions: [id number] Rupture of Membranes: Denies Vaginal Bleeding: None Vaginal Discharge: Denies Recent Sexual Intercouse: Denies Abdominal Trauma: Not Applicable Patient Complaints: Contractions; Cramping Additional Patient Complaints: PT REPORTS PAIN WITH URINATION Time Provider Notified: 08/24/2017 17:43 Provider Notified: DR. VARGAS Initial Plan: EFM x2, STERILE SPEC, FFN, SVE, BPP, CERVICAL LENGTH, TERB (PRN), IV HYDRATION (PRN) Datetime: 08/24/2017 17:07 Stage of : OB Triage Maternal Assessment Level of Consciousness: Fully Conscious Headache: Denies Blurred Vision: No Respiratory Effort: Unlabored; Regular Rhythm; Equal Expansion Breath Sounds, Left: Clear and Equal Breath Sounds, Right: Clear and Equal Nausea/Vomiting: Denies RUQ Epigastric Pain: Denies Lower Extremities Edema: Bilateral Lower Extremities Degree: 1+ Upper Extremities Edema: None Degree: None Facial Edema: None Temperature Route: Oral Fall Risk Assessment History of Falling: (0) No Secondary Diagnosis: (0) No Ambulatory Aid: (0) Bedrest/Nurse Assist IV Therapy: (0) No Gait: (0) Normal/Bedrest/Immobile Mental Status: (0) Oriented to Own Ability Fall Score: 0 Fall Risk Score Definition: No Risk: No action required Pain Assessment Pain Scale: 5 Pain Presence: Intermittent Pain Type: Contraction Pain Location: Abdomen Datetime: 07/25/2017 21:30 Stage of : Antepartum Datetime: 07/25/2017 21:10 Stage of : Antepartum Datetime: 07/25/2017 20:30 Arrived By: Wheelchair Arrived From: Office Chief Complaint: R/O PTL Movement: Present Contractions: Occasional Patient Complaints: Contractions Initial Plan: EFM x2 Datetime: 07/25/2017 20:01 Stage of : Antepartum Datetime: 07/25/2017 20:00 Stage of : Antepartum Maternal Assessment Level of Consciousness: Fully Conscious DTR's/Clonus: No Clonus Headache: Denies Blurred Vision: No RUQ Epigastric Pain: Denies Facial Edema: None Labor Evaluation Frequency: 0 Monitor Mode: External Resting Tone [place]: Relaxed Heart Rate FHR Baseline Rate: 135 Monitor Mode: External US Variability: Moderate 6-25 bpm Accelerations: 15X15 Decelerations: None Category: Category I Pain Assessment Pain Scale: 5 Pain Presence: Constant Pain Type: Stabbing; Ache Pain Location: Right Leg; Left Leg Pain Goal: 8 Pain Relief Measures: Comfort Measures Membrane Status: Intact Datetime: 07/25/2017 19:21 Stage of : Antepartum Temperature Route: Oral Datetime: 07/25/2017 18:44 Labor Evaluation Frequency: X2 Monitor Mode: External Resting Tone [place]: Relaxed Heart Rate FHR Baseline Rate: 130 Monitor Mode: External US FHR Baseline Changes: No Baseline Change Variability: Moderate 6-25 bpm Accelerations: 15X15 Decelerations: None Category: Category I Datetime: 07/25/2017 17:58 Labor Evaluation Frequency: 3/hr Monitor Mode: External Duration (sec)2399: 50-60 Quality: Mild Resting Tone [place]: Relaxed Heart Rate FHR Baseline Rate: 130 Monitor Mode: External US FHR Baseline Changes: No Baseline Change Variability: Moderate 6-25 bpm Accelerations: 15X15 Decelerations: None Category: Category I Datetime: 07/25/2017 17:01 Labor Evaluation Frequency: X3 Monitor Mode: External Quality: Mild Resting Tone [place]: Relaxed Heart Rate FHR Baseline Rate: 150 Monitor Mode: External US FHR Baseline Changes: No Baseline Change Variability: Moderate 6-25 bpm Accelerations: 10X10 Decelerations: None Category: Category I Datetime: 07/25/2017 16:57 Labor Evaluation Frequency: pccasional Monitor Mode: External Quality: Mild Resting Tone [place]: Relaxed Heart Rate FHR Baseline Rate: 140 Monitor Mode: External US FHR Baseline Changes: No Baseline Change Variability: Moderate 6-25 bpm Accelerations: 15X15 Decelerations: None Category: Category I Datetime: 07/25/2017 16:49 Stage of : OB Triage Datetime: 07/25/2017 16:21 Contraction Comments: toco not working. changed toco Datetime: 07/25/2017 16:00 Labor Evaluation Frequency: 0 Monitor Mode: External Resting Tone [place]: Relaxed Contraction Comments: NONE PALPATED Heart Rate FHR Baseline Rate: 140 Monitor Mode: External US FHR Baseline Changes: No Baseline Change Variability: Moderate 6-25 bpm Accelerations: 10X10 Decelerations: None Category: Category I Datetime: 07/25/2017 15:56 Pain Assessment Pain Scale: 6 Pain Type: Cramping Pain Location: Abdomen Datetime: 07/25/2017 15:52 Time of Arrival: 07/25/2017 15:52 EGA: 29.5 Arrived By: Ambulance Arrived From: Dr. Donahue Chief Complaint: upper abd , and cramping, leg pain. pt states she had pain in both legs when she got up after u/s in clinic. nurse had to hold her up and called ambulance Movement: Present Contractions: Denies/Absent Rupture of Membranes: Denies Vaginal Bleeding: None Vaginal Discharge: Denies Abdominal Trauma: Not Applicable Patient Complaints: Cramping; Other Time Provider Notified: 07/25/2017 16:54 Provider Notified: delshad Initial Plan: ua cl Datetime: 07/24/2017 06:58 Fall Score: 0 Fall Risk Score Definition: No Risk: No action required Datetime: 07/24/2017 06:56 EGA: 29.4
== END 2017-08-24 21:18 | disposition home or self-care (01) ==
LOC: OBT 16:28 → L-D 16:30 → OBT 21:18
PROVIDERS: ATTEND Obstetrics & Gynecology
DX: O62.9 Abnormality of forces of labor, unspecified (principal); Z3A.34 34 weeks gestation of pregnancy
CPT/HCPCS: 76817; 76818; 81003; 82731; Z7500; G0463

== ENCOUNTER 2017-09-02 20:47 | Outpatient (CLI) | payer MEDICAID ==
[~2017-09-02] VITALS: Ht 144.8 cm; Wt 67.3 kg
[~2017-09-02 20:47] MED LIST changes: -ACET500C5 PO
[2017-09-02 21:32] VITALS: Ht 144.8 cm; Wt 67.3 kg
[2017-09-02 21:33] VITALS: BP 96/51; PULSE 86; RESP 18
--- NOTE | 2017-09-02 22:23 | RADRPT ---
PROCEDURE: US Abdomen (right upper quadrant). CLINICAL INDICATION: Right upper quadrant abdomen pain. TECHNIQUE: Multiple real-time longitudinal and transverse images of the right upper quadrant of th e abdomen were acquired utilizing a curved array transducer. Images were reviewed on a high-resoluti on PACS workstation. COMPARISON: Right upper quadrant abdomen ultrasound dated 04/08/2017. FINDINGS: The liver is normal in size and diffusely increased in echogenicity. There is no focal hepatic lesion. Color Doppler and pulsed Doppler sonography demonstrate normal a ntegrade flow in the portal vein. The gallbladder is normal with no stones or wall thickening. There is no pericholecystic fluid shabbir ection. The bile ducts are normal with the common bile duct measuring 2.6 mm in diameter. The visualized portions of the pancreas are unremarkable with obscuration of the tail of the pancrea s. No free fluid is present. The right kidney measures 10.2 cm. There is normal echogenicity of the right kidney. There is mil d right hydronephrosis. There is no right renal mass or calculus. IMPRESSION: 1. Fatty metamorphosis of the liver. 2. Mild right hydronephrosis. 3. Otherwise normal right upper quadrant abdomen ultrasound. RPTAT: QQ .Kendell Juarez MD, MD Date Time Electronically viewed and signed by .Kendell Juarez MD, on 09/02/2017 22:23 .R/
[2017-09-02 23:35] LABS: BASOPHILS % 0.2 % (0.0-2.0); EOSINOPHILS # 0.1 10^3/ul (0.0-0.5); EOSINOPHILS % 0.6 % (0.0-7.0); HEMATOCRIT 34.2 % (37.0-47.0); HEMOGLOBIN 11.7 g/dl (12.0-16.0); LYMPHOCYTES # 1.7 10^3/ul (0.8-2.9); LYMPHOCYTES % 16.9 % (15.0-51.0); MEAN CORPUSCULAR HEMOGLOBIN 29.4 pg (29.0-33.0); MEAN CORPUSCULAR HGB CONC 34.2 g/dl (32.0-37.0); MEAN CORPUSCULAR VOLUME 85.9 fl (82.0-101.0); MEAN PLATELET VOLUME 10.5 fl (7.4-10.4); MONOCYTE # 0.6 10^3/ul (0.3-0.9); MONOCYTES % 6.1 % (0.0-11.0); NEUTROPHIL # 7.4 10^3/ul (1.6-7.5); NEUTROPHILS % 75.1 % (39.0-77.0); PLATELET COUNT 194 10^3/UL (140-415); RED BLOOD COUNT 3.98 10^6/ul (4.20-5.40); RED CELL DISTRIBUTION WIDTH 12.2 % (11.5-14.5); WHITE BLOOD COUNT 9.8 10^3/ul (4.8-10.8)
[2017-09-02 23:53] LABS: ALBUMIN 2.9 g/dl (3.3-4.9); ALBUMIN/GLOBULIN RATIO 0.76; BILIRUBIN,INDIRECT 0.2 mg/dl (0-1.1); BILIRUBIN,TOTAL 0.2 mg/dl (0.2-1.3); CALCIUM 8.7 mg/dl (8.4-10.2); CREATININE 0.8 mg/dl (0.44-1.00); POTASSIUM 3.3 mmol/L (3.5-5.1); TOTAL PROTEIN 6.7 g/dl (6.1-8.1)
[2017-09-03 00:49] LABS: ADD UMIC NO; UR ASCORBIC ACID NEGATIVE (NEGATIVE); UR BILIRUBIN (Dip) NEGATIVE (NEGATIVE); UR BLOOD (Dip) NEGATIVE (NEGATIVE); UR CLARITY CLEAR (CLEAR); UR COLOR STRAW (YELLOW); UR GLUCOSE (Dip) NEGATIVE (NEGATIVE); UR KETONES (Dip) NEGATIVE (NEGATIVE); UR LEUKOCYTE ESTERASE (Dip) NEGATIVE Leu/ul (NEGATIVE); UR NITRITE (Dip) NEGATIVE (NEGATIVE); UR SPECIFIC GRAVITY (Dip) 1.005 (1.003-1.030); UR TOTAL PROTEIN (Dip) NEGATIVE (NEGATIVE); UR UROBILINOGEN (Dip) NEGATIVE (NEGATIVE)
[2017-09-03] MEDS ORDERED: HYDROCODONE/APAP (5/325) TAB PO ONE (01:30)
--- NOTE | 2017-09-03 06:06 | TRIAGE ---
OB Triage Datetime Report Generated by CPN: 09/03/2017 06:05 Datetime: 09/03/2017 05:00 Stage of : OB Triage Maternal Assessment Level of Consciousness: Fully Conscious Labor Evaluation Frequency: X1 Monitor Mode: External Duration (sec)2399: 70 Quality: Mild Heart Rate FHR Baseline Rate: 135 Monitor Mode: External US Variability: Moderate 6-25 bpm Accelerations: 15X15 Decelerations: None Pain Assessment Pain Scale: 3 Pain Presence: Constant Pain Type: Pressure Pain Location: Abdomen Pain Goal: 3 Datetime: 09/03/2017 04:00 Stage of : OB Triage Maternal Assessment Level of Consciousness: Fully Conscious Labor Evaluation Frequency: X1 Monitor Mode: External Duration (sec)2399: 70 Quality: Mild Heart Rate FHR Baseline Rate: 135 Monitor Mode: External US Variability: Moderate 6-25 bpm Accelerations: 15X15 Decelerations: None Category: Category I Pain Assessment Pain Scale: 3 Pain Presence: Constant Pain Type: Pressure Pain Location: Abdomen Pain Goal: 3 Datetime: 09/03/2017 03:00 Stage of : OB Triage Maternal Assessment Level of Consciousness: Fully Conscious Labor Evaluation Frequency: X1 Monitor Mode: External Duration (sec)2399: 70 Quality: Mild Heart Rate FHR Baseline Rate: 145 Monitor Mode: External US Variability: Moderate 6-25 bpm Accelerations: 15X15 Decelerations: None Category: Category I Pain Assessment Pain Scale: 3 Pain Presence: Constant Pain Type: Pressure Pain Location: Abdomen Pain Goal: 3 Datetime: 09/03/2017 02:27 Stage of : OB Triage Datetime: 09/03/2017 02:00 Stage of : OB Triage Maternal Assessment Level of Consciousness: Fully Conscious Labor Evaluation Frequency: X3 Monitor Mode: External Duration (sec)2399: 70 Quality: Mild Heart Rate FHR Baseline Rate: 145 Monitor Mode: External US Variability: Moderate 6-25 bpm Accelerations: 15X15 Decelerations: None Category: Category I Pain Assessment Pain Scale: 5 Pain Presence: Constant Pain Type: Pressure Pain Location: Abdomen Pain Goal: 3 Datetime: 09/03/2017 01:36 Stage of : OB Triage Datetime: 09/03/2017 01:00 Stage of : OB Triage Maternal Assessment Level of Consciousness: Fully Conscious Labor Evaluation Frequency: X2 Monitor Mode: External Duration (sec)2399: 70 Quality: Mild Heart Rate FHR Baseline Rate: 145 Monitor Mode: External US Variability: Moderate 6-25 bpm Accelerations: 15X15 Decelerations: None Category: Category I Pain Assessment Pain Scale: 5 Pain Presence: Constant Pain Type: Pressure Pain Location: Abdomen Pain Goal: 3 Datetime: 09/03/2017 00:55 Stage of : OB Triage Datetime: 09/03/2017 00:00 Stage of : OB Triage Maternal Assessment Level of Consciousness: Fully Conscious Labor Evaluation Frequency: X2 Monitor Mode: External Duration (sec)2399: 70 Quality: Mild Heart Rate FHR Baseline Rate: 145 Monitor Mode: External US Variability: Moderate 6-25 bpm Accelerations: 15X15 Decelerations: None Category: Category I Pain Assessment Pain Scale: 5 Pain Presence: Constant Pain Type: Pressure Pain Location: Abdomen Pain Goal: 3 Datetime: 09/02/2017 23:00 Stage of : OB Triage Maternal Assessment Level of Consciousness: Fully Conscious Labor Evaluation Frequency: X2 Monitor Mode: External Duration (sec)2399: 70 Quality: Mild Heart Rate FHR Baseline Rate: 155 Monitor Mode: External US Variability: Moderate 6-25 bpm Accelerations: 15X15 Decelerations: None Category: Category I Pain Assessment Pain Scale: 5 Pain Presence: Constant Pain Type: Pressure Pain Location: Abdomen Pain Goal: 3 Datetime: 09/02/2017 22:00 Stage of : OB Triage Maternal Assessment Level of Consciousness: Fully Conscious Labor Evaluation Frequency: X1 Monitor Mode: External Duration (sec)2399: 70 Quality: Mild Heart Rate FHR Baseline Rate: 155 Monitor Mode: External US Variability: Moderate 6-25 bpm Accelerations: 15X15 Decelerations: None Category: Category I Pain Assessment Pain Scale: 5 Pain Presence: Constant Pain Type: Pressure Pain Location: Abdomen Pain Goal: 3 Datetime: 09/02/2017 21:26 Stage of : OB Triage Vaginal Exam Dilatation (cms): 0.0 Effacement (%): 50 Station: -3 Exam By: ANSLEY DOWNING Datetime: 09/02/2017 21:25 Stage of : OB Triage Datetime: 09/02/2017 21:21 Stage of : OB Triage Maternal Assessment Level of Consciousness: Fully Conscious DTR's/Clonus: DTRs 2+; No Clonus Headache: Denies Blurred Vision: No Respiratory Effort: Unlabored; Regular Rhythm; Equal Expansion Breath Sounds, Left: Clear and Equal Breath Sounds, Right: Clear and Equal Nausea/Vomiting: Denies RUQ Epigastric Pain: Denies Lower Extremities Edema: None Upper Extremities Edema: None Facial Edema: None Temperature Route: Oral Fall Risk Assessment History of Falling: (0) No Secondary Diagnosis: (0) No Ambulatory Aid: (0) Bedrest/Nurse Assist IV Therapy: (0) No Gait: (0) Normal/Bedrest/Immobile Mental Status: (0) Oriented to Own Ability Fall Score: 0 Fall Risk Score Definition: No Risk: No action required Labor Evaluation Frequency: X1 Monitor Mode: External Duration (sec)2399: 60 Quality: Mild Heart Rate FHR Baseline Rate: 155 Monitor Mode: External US Variability: Moderate 6-25 bpm Accelerations: 15X15 Decelerations: None Category: Category I Pain Assessment Pain Scale: 5 Pain Presence: Constant Pain Type: Pressure Pain Location: Abdomen (Annotations: RIGHT UPPER ABDOMEN ) Pain Goal: 3 Datetime: 09/02/2017 20:58 Time of Arrival: 09/02/2017 20:45 EGA: 35.2 Arrived By: Ambulatory Arrived From: Home Chief Complaint: PT C/P RIGHT UPPER ABDOMEN PAIN Movement: Present Time Contractions Began: 09/02/2017 15:00 Rupture of Membranes: Denies Vaginal Discharge: Denies Initial Plan: TOCO AND EFM APPLY, Datetime: 09/02/2017 20:55 Stage of : OB Triage Datetime: 08/24/2017 17:13 EGA: 34.0 Datetime: 08/24/2017 17:07 Fall Score: 0 Fall Risk Score Definition: No Risk: No action required Datetime: 07/25/2017 15:52 EGA: 29.5 Datetime: 07/24/2017 06:58 Fall Score: 0 Fall Risk Score Definition: No Risk: No action required Datetime: 07/24/2017 06:56 EGA: 29.4
--- NOTE | 2017-09-03 06:10 | PN ---
Triage Information Date/Time September 03, 2017 Reason for visit: Abd/pelvic pain Weeks of Gestation 35w 3d /Para 2/1 Diabetes: none Hypertention: none Additional information Pt states that she has pain in the right upper quadrant that comes and goes since 08/31. She says the pain comes about every 30 minutes and when it is gone it is 100% gone. She says it was 5/10 when she first got here and now it is 3/10, when present. Denies and nausea or vomiting, fever or chills.Pt had a GRIMM on presentation but after one [place] it is completely gone. PMHx: none. PSHx: none. POBHx: x 1, at term. NKDA. Objective Vital Signs Date Time Temp Pulse Resp B/P Pulse Ox O2 Delivery O2 Flow Rate FiO2 09/02/17 21:33 98.3 86 18 96/51 Room Air Heart Rate: 140's Heart Rate Comments Accels to 170 bpm. No decels. Contractions: >10 Minutes Apart (rare UC's.) Exam No pain to palpation anywhere onthe beely but especially the right upper quadrant. Results/Medications Result Diagram: 09/02/17232609/02/172326 Results 24 hrs Laboratory Tests Test 09/02/17 22:00 09/02/17 23:27 Urine Color STRAW Urine Clarity CLEAR Urine pH 7.0 Urine Specific [place] 1.005 Urine Ketones NEGATIVE Urine Nitrite NEGATIVE Urine Bilirubin NEGATIVE Urine Urobilinogen NEGATIVE Urine Leukocyte Esterase NEGATIVE Urine Hemoglobin NEGATIVE Urine Glucose NEGATIVE Urine Total Protein NEGATIVE White Blood Count 9.8 Red Blood Count 3.98 L Hemoglobin 11.7 L Hematocrit 34.2 L Mean Corpuscular Volume 85.9 Mean Corpuscular Hemoglobin 29.4 Mean Corpuscular Hemoglobin Concent 34.2 Red Cell Distribution Width 12.2 Platelet Count 194 Mean Platelet Volume 10.5 H Neutrophils % 75.1 Lymphocytes % 16.9 Monocytes % 6.1 Eosinophils % 0.6 Basophils % 0.2 Nucleated Red Blood Cells % 0.0 Neutrophils # 7.4 Lymphocytes # 1.7 Monocytes # 0.6 Eosinophils # 0.1 Basophils # 0.0 Nucleated Red Blood Cells # 0.0 Sodium Level 138 Potassium Level 3.3 L Chloride Level 108 Carbon Dioxide Level 26 Anion Gap 7 L Blood Urea Nitrogen 8 Creatinine 0.80 Glucose Level 95 Calcium Level 8.7 Total Bilirubin 0.2 Direct Bilirubin 0.00 Indirect Bilirubin 0.2 Aspartate Amino Transf (AST/SGOT) 21 Alanine Aminotransferase (ALT/SGPT) 26 Alkaline Phosphatase 167 H Total Protein 6.7 Albumin 2.9 L Globulin 3.80 H Albumin/Globulin Ratio 0.76 Medications [place] 5/325 - one tab given once. Imaging Results Right upper quadrant US is negative except for mild right hydronephrosis and fatty liver. GB completely normal. Disposition: Discharge Assessment/Plan A: IUP at 35w 3d. Right upper quadrant pain P: D/C home. F/U as scheduled with her doctor. Unclear etiology of the pain but does not appear to be related to her appendix, GB, or kidney and pt reassured as such. SRINIVAS FLYNN MD Sep 03, 2017 06:10
== END 2017-09-03 06:00 | disposition home or self-care (01) ==
LOC: L-D 20:47 → OBT 20:47
PROVIDERS: ATTEND Obstetrics & Gynecology
DX: O26.893 Other specified pregnancy related conditions, third trimester (principal); R10.11 Right upper quadrant pain; Z3A.35 35 weeks gestation of pregnancy
CPT/HCPCS: 76705; 80053; 81003; 85025; Z7500; Z7610; G0463

== ENCOUNTER 2017-09-30 10:32 | Inpatient (IN) | payer MEDICAID ==
[~2017-09-30] VITALS: Ht 142.2 cm; Wt 68.1 kg
[~2017-09-30 10:32] MED LIST changes: +EPHEDrine SULFATE 50 MG/5 ML SYG ONE; +OXYTOCIN 30 UNITS/LR 500 ML BAG IV ONE
[2017-09-30] MEDS: LACTATED RINGER'S 1,000 ML IV SCH ×3 (10:50→13:09)
[2017-09-30] MEDS ORDERED: LACTATED RINGER'S 1,000 ML IV PRN (10:55)
[2017-09-30 10:57] VITALS: Ht 142.2 cm; Wt 68.1 kg
[2017-09-30 10:58] VITALS: BP 103/67; PULSE 63; RESP 22
[2017-09-30] MEDS ORDERED: OXYTOCIN 30 UNITS/LR 500 ML IV SCH (11:00)
[2017-09-30] MEDS ORDERED: MISOPROSTOL 200 MCG TAB PR PRN (11:00)
[2017-09-30] MEDS ORDERED: CARBOPROST 250 MCG INJ IM PRN (11:00)
[2017-09-30] MEDS ORDERED: OXYTOCIN 30 UNITS/LR 500 ML IV PRN (11:00)
[2017-09-30] MEDS ORDERED: BUTORPHANOL 2 MG INJ IV PRN ×2 (11:00)
[2017-09-30 11:08] LABS: BASOPHILS % 0.3 % (0.0-2.0); EOSINOPHILS % 0.1 % (0.0-7.0); HEMATOCRIT 37.7 % (37.0-47.0); HEMOGLOBIN 12.9 g/dl (12.0-16.0); LYMPHOCYTES # 1.4 10^3/ul (0.8-2.9); LYMPHOCYTES % 12.4 % (15.0-51.0); MEAN CORPUSCULAR HEMOGLOBIN 29.1 pg (29.0-33.0); MEAN CORPUSCULAR HGB CONC 34.2 g/dl (32.0-37.0); MEAN CORPUSCULAR VOLUME 85.1 fl (82.0-101.0); MEAN PLATELET VOLUME 11.3 fl (7.4-10.4); MONOCYTE # 0.4 10^3/ul (0.3-0.9); MONOCYTES % 3.9 % (0.0-11.0); NEUTROPHIL # 9.3 10^3/ul (1.6-7.5); NEUTROPHILS % 82.7 % (39.0-77.0); PLATELET COUNT 182 10^3/UL (140-415); RED BLOOD COUNT 4.43 10^6/ul (4.20-5.40); RED CELL DISTRIBUTION WIDTH 12.5 % (11.5-14.5); WHITE BLOOD COUNT 11.3 10^3/ul (4.8-10.8)
[2017-09-30 11:36] LABS: INR 0.91; PARTIAL THROMBOPLASTIN TIME 26.9 Sec (25.0-35.0); PROTIME 12.2 Sec (12.2-14.2)
[2017-09-30] MEDS ORDERED: MINERAL OIL LIGHT 10 ML VIAL TOP PRN (12:00)
[2017-09-30] MEDS: LIDOCAINE 1% (MPF) 30 ML INJ INJ PRN ×2 (12:30→13:46)
[2017-09-30] MEDS: OXYTOCIN 30 UNITS/LR 500 ML IV SCH ×2 (12:40→13:11)
[2017-09-30] MEDS: METHYLERGONOVINE 0.2 MG INJ IM PRN ×2 (12:47→15:35)
[2017-09-30] MEDS: IBUPROFEN 600 MG TAB PO PRN ×2 (13:15→23:53)
--- NOTE | 2017-09-30 13:57 | RADRPT ---
PROCEDURE: US Pelvis. CLINICAL INDICATION: Evaluate retained placenta LAST MENSTRUAL PERIOD: TECHNIQUE: Multiple sonographic images of the pelvis were obtained utilizing a transabdominal and endovaginal technique. COMPARISON: None FINDINGS: The uterus is heterogeneous and measures 17.9 x 9.0 x 8.4 cm. 3.9 x 1.8 cm echogenic soft tissue wit hin the endometrial canal with minimal vascularity. There is no evidence for free fluid. IMPRESSION: Enlarged heterogeneous uterus consistent with recent state. Endometrial soft tissue with minimal vascularity may represent retained placenta measuring 3.9 x 1.8 cm. RPTAT:AAJJ Physician Patricio Date Time Electronically viewed and signed by Maritza Ch Physician on 09/30/2017 13:57 /
--- NOTE | 2017-09-30 14:14 | LDN ---
Date/Time of Note Date/Time of Note DATE: 09/30/17 TIME: 14:02 Delivery Summary Normal spontaneous vaginal delivery of a baby boy from OA position shoulders delivered without difficulty required suprapubic pressure, rest of the baby's body follow cord clamped after stopped pulsation, placenta spontaneous expulsion inspected there was one small area in 1 of the marginal COTILADON which seemed lacerated , noted 1 cm x 1 cm area without placental tissue, uterine cavity explored manually no retained placenta noted, for confirmation ultrasound ordered, exploration of perineum and vagina she had sustained small first-degree perineal laceration which repaired with 3-0 chromic catgut, estimated blood loss 300-400 cc Placenta Delivered: Spontaneously Meconium: none Episiotomy: No Laceration repair: First-degree perineal laceration repaired with 3-0 chromic catgut Anesthesia type: Local Estimated blood loss: 350 Sponge & Needle done & correct: Yes All needle counts correct: Yes Any foreign bodies felt in the: No Problems: Infant Delivery Information Sex Infant Sex: male Apgars 1 Minute: 8 5 Minute: 9 Suctioning Nose & mouth suctioned at zeus: Yes Delee suction performed: No Umbilical Cord Umbilical cord with: 3 Vessels Cord presentations: no nuchal cord Cord Blood was obtained: Yes MOON ARIZA MD Sep 30, 2017 14:12
--- NOTE | 2017-09-30 14:19 | HP ---
Date/Time of Note Date/Time of Note DATE: 09/30/17 TIME: 14:14 OB - History Hx of Present Free Text/Dictation 26 years old female EDC October 05, 2017 admitted to [facility] at 39 weeks and 2 days in active labor week examination on admission cervix 8-9 cm dilated 100% effaced vertex at 0+1 station she transferred from triage unit to L&D anticipating vaginal delivery Chief Complaint: Labor pain Estimated Due Date: Oct 05, 2017 : 2 Para: 1 Care: Limited Care Ultrasounds: Normal mid trimester US Obstetrical Complications: None, Growth Restriction Medical Complications: None Past Family/Social History * Past Medical, Surgical, Family and Obstetric Histories reviewed from chart. Rubella: immune RPR/VDRL: Negative GBS Status: Negative HBsAG: Negative OB Admission Exam Vital Signs Vital Signs Vital Signs Date Time Temp Pulse Resp B/P Pulse Ox O2 Delivery O2 Flow Rate FiO2 09/30/17 10:58 98.0 63 22 103/67 Room Air Physical Exam HEENT: WNL Heart: Rhythm Normal Lungs: Clear, Equal Abdomen: WNL Extremities: Normal Reflexes: Normal Cervical Dilatation: 8cm Effacement: 100% Station: 0 Membranes: Intact Heart Rate: 130's Accelerations: Accelerations Present Decelerations: No Decelerations Varibility: Moderate Contractions on Admission: < 5 Minutes Apart Intensity: Firm Last 72 hours Lab Results CBC & BMP 09/30/17 10:50 OB Assessment/Plan Reason for admission: active labor Other plan: 26 years old female EDC October 05, 2017 admitted to the hospital in active labor pelvic examination on admission cervix 9 cm dilated vertex reason patient at -1-0 station patient transferred from triage to L&D anticipating vaginal delivery MOON ARIZA MD Sep 30, 2017 14:19
[2017-09-30] MEDS ORDERED: PHENYLephrine (100 MCG/ML) 5ML SYG ONE ×2 (14:54→15:48)
[2017-09-30] MEDS ORDERED: CEFAZOLIN 1 GM INJ ONE (14:58)
[2017-09-30] MEDS ORDERED: MISOPROSTOL 200 MCG TAB PO ONE (15:30)
[2017-09-30] MEDS ORDERED: FENTAnyl 50 MCG/ML VIAL ONE (16:08)
[2017-09-30] MEDS ORDERED: PROCHLORPERAZINE 10 MG INJ IV PRN (16:30)
[2017-09-30] MEDS ORDERED: HYDROmorphONE (0.2 MG/ML) 10ML SYG IV PRN (16:30)
[2017-09-30] MEDS ORDERED: ONDANSETRON 4 MG INJ IV PRN (16:30)
[2017-09-30] MEDS ORDERED: DIPHENHYDRAMINE 50 MG INJ IV PRN (16:30)
[2017-09-30] MEDS ORDERED: ACETAMINOPHEN 1000MG/100ML IV 100 ML IVPB PRN (16:30)
[2017-09-30] MEDS ORDERED: MEPERIDINE 25 MG INJ IV PRN (16:30)
[2017-09-30] MEDS: FENTAnyl 50 MCG/ML VIAL IV PRN ×3 (16:37→20:14)
--- NOTE | 2017-09-30 16:53 | OPR ---
Date/Time of Note Date/Time of Note DATE: 09/30/17 TIME: 16:18 Operative Report Free Text/Dictation This is a 27 years old EDC October 05, 2017 admitted to the hospital in active labor pelvic examination on admission cervix 8-9 cm dilated 80% effaced vertex at -2 station she had normal spontaneous vaginal delivery of a male fetus with weight 3940 g 8 lbs. 11 oz. spontaneous expulsion of the placenta noted there is an area 1 x 1 cm missing placenta tissue pelvic ultrasound requested the report retained placenta 1 cm x 3 in the uterine cavity she underwent uterine exploration, D&C under spinal anesthesia , negative for retained placenta, exploration of the vagina and cervix noted cervix posteriorly is lacerated all the way to 1 cm before posterior lower segment, posterior cervix. Repaired with 3-0 chromic catgut, first-degree perineal laceration repaired with 3-0 chromic catgut, uterus well contracted, 2 inch vaginal packing inserted in the vagina. 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
[2017-09-30 17:40] LABS: BASOPHILS % 0.2 % (0.0-2.0); HEMATOCRIT 23.5 % (37.0-47.0); HEMOGLOBIN 7.9 g/dl (12.0-16.0); LYMPHOCYTES % 6.3 % (15.0-51.0); MEAN CORPUSCULAR HEMOGLOBIN 29.4 pg (29.0-33.0); MEAN CORPUSCULAR HGB CONC 33.6 g/dl (32.0-37.0); MEAN CORPUSCULAR VOLUME 87.4 fl (82.0-101.0); MONOCYTE # 0.7 10^3/ul (0.3-0.9); MONOCYTES % 4.1 % (0.0-11.0); NEUTROPHIL # 14.5 10^3/ul (1.6-7.5); NEUTROPHILS % 88.7 % (39.0-77.0); PLATELET COUNT 146 10^3/UL (140-415); RED BLOOD COUNT 2.69 10^6/ul (4.20-5.40); RED CELL DISTRIBUTION WIDTH 12.7 % (11.5-14.5); WHITE BLOOD COUNT 16.3 10^3/ul (4.8-10.8)
[2017-09-30] MEDS ORDERED: SOD CHLORIDE 0.9% 1,000 ML IV PRN (18:30)
[2017-09-30 19:27] VITALS: BP 91/56; PULSE 113; RESP 18
[2017-09-30 19:43] VITALS: BP 91/54; PULSE 109; RESP 18
[2017-09-30 22:03] VITALS: BP 90/52; PULSE 94; RESP 19
[2017-10-01] VITALS (30 sets, daily range): BP systolic 69–94; BP diastolic 33–74; PULSE 62–86; RESP 18–20
[2017-10-01] MEDS ORDERED: LACTATED RINGER'S 1,000 ML IV* SCH (01:08)
[2017-10-01] MEDS ORDERED: CARBOPROST 250 MCG INJ IM PRN (01:30)
[2017-10-01] MEDS ORDERED: MISOPROSTOL 200 MCG TAB PR PRN (01:30)
[2017-10-01] MEDS ORDERED: METHYLERGONOVINE 0.2 MG INJ IM PRN (01:30)
[2017-10-01] MEDS ORDERED: OXYTOCIN 30 UNITS/LR 500 ML IV PRN (01:30)
[2017-10-01] MEDS ORDERED: LANOLIN 7 GM TUBE TOP PRN (01:30)
[2017-10-01] MEDS: HYDROCODONE/APAP (5/325) TAB PO PRN ×3 (02:08→20:04)
[2017-10-01] MEDS: OXYTOCIN 30 UNITS/LR 500 ML IV SCH ×2 (03:20→05:08)
[2017-10-01] MEDS ORDERED: LACTATED RINGER'S 1,000 ML IV ONE (05:00)
[2017-10-01] MEDS ORDERED: ACETAMINOPHEN 1000MG/100ML IV 100 ML IVPB ONE (05:00)
[2017-10-01 05:05] LABS: BASOPHILS % 0.1 % (0.0-2.0); EOSINOPHILS % 0.3 % (0.0-7.0); HEMATOCRIT 21.3 % (37.0-47.0); HEMOGLOBIN 7.3 g/dl (12.0-16.0); LYMPHOCYTES # 1.9 10^3/ul (0.8-2.9); MEAN CORPUSCULAR HEMOGLOBIN 29.6 pg (29.0-33.0); MEAN CORPUSCULAR HGB CONC 34.3 g/dl (32.0-37.0); MEAN CORPUSCULAR VOLUME 86.2 fl (82.0-101.0); MEAN PLATELET VOLUME 11.2 fl (7.4-10.4); MONOCYTES % 7.5 % (0.0-11.0); NEUTROPHIL # 10.5 10^3/ul (1.6-7.5); NEUTROPHILS % 77.3 % (39.0-77.0); RED BLOOD COUNT 2.47 10^6/ul (4.20-5.40); RED CELL DISTRIBUTION WIDTH 13.4 % (11.5-14.5); WHITE BLOOD COUNT 13.5 10^3/ul (4.8-10.8)
[2017-10-01 05:06] LABS: PLATELET COUNT 110 10^3/UL (140-415); POSITIVE DIFF @See below
[2017-10-01] MEDS: IBUPROFEN 600 MG TAB PO SCH ×4 (06:00→23:35)
[2017-10-01] MEDS ORDERED: SOD CHLORIDE 0.9% 1,000 ML IV SCH (06:30)
--- NOTE | 2017-10-01 10:41 | QN ---
Documentation Comment day 1 Afebrile, blood pressure 82/48/rest of her vital signs within normal, hemoglobin 7.3, denies lightheadedness, receiving 2 units of packed cells, her abdomen is soft, uterus firm, lochia scant, urine output normal, extremities normal MOON ARIZA MD Oct 01, 2017 10:41
[2017-10-01 17:06] LABS: HEMATOCRIT 30.8 % (37.0-47.0); HEMOGLOBIN 10.5 g/dl (12.0-16.0)
[2017-10-02 04:00] VITALS: BP 90/52; PULSE 66; RESP 18
[2017-10-02] MEDS: HYDROCODONE/APAP (5/325) TAB PO PRN (04:01)
[2017-10-02] MEDS: IBUPROFEN 600 MG TAB PO SCH ×2 (05:36→12:36)
[2017-10-02 07:30] VITALS: BP 85/46; PULSE 67; RESP 16
--- NOTE | 2017-10-02 09:30 | PD.PPDC ---
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
--- NOTE | 2017-10-02 09:32 | DS ---
Date/Time of Note Date/Time of Note DATE: 10/02/17 TIME: 09:31 Discharge Summary Admission/Discharge Info Admit Date/Time Sep 30, 2017 at 10:45 Discharge Date/Time October 02, 2017 at 9:30 AM Discharge Diagnosis Post normal vaginal delivery day 2 Patient Condition: Good Procedures Normal vaginal delivery Hx of Present Illness Term in labor Hospital Course Satisfactory recovery uneventful Home Meds Reported Medications Vit #76/Iron,Carb/FA (Prenatabs Rx Tablet) 1 Each Tablet, 1 EACH PO DAILY, TAB 07/24/17 Follow-up Plan instruction given recommended to be seen at the clinic in 2 weeks Primary Care Provider Care Physician No Primary Time spent on discharge: < 30 minutes Pending Labs Laboratory Tests Test 10/01/17 16:26 Hemoglobin 10.5g/dl (12.0-16.0) Hematocrit 30.8% (37.0-47.0) MOON ARIZA MD Oct 02, 2017 09:32
[2017-10-03] MEDS ORDERED: DIPHTH/TET/ACEL PERTUSS (ADULT) 0.5 ML VIAL IM* ONE (09:00)
== END 2017-10-02 13:40 | disposition home or self-care (01) | DRG 775 ==
LOC: OBT 10:32 → L-D 10:33 → OBT 10:43 → L-D 10:45 → PP1 10-01 01:45
PROVIDERS: ADMIT Obstetrics & Gynecology; ATTEND Obstetrics & Gynecology
PROC: 0UQC7ZZ Repair Cervix, Via Natural or Artificial Opening (ICD-10-PCS; 2017-09-30)
PROC: 0HQ9XZZ Repair Perineum Skin, External Approach (ICD-10-PCS; 2017-09-30)
PROC: 30233N1 Transfusion of Nonautologous Red Blood Cells into Peripheral Vein, Percutaneous Approach (ICD-10-PCS; 2017-09-30)
PROC: 10E0XZZ Delivery of Products of Conception, External Approach (ICD-10-PCS; principal; 2017-09-30 14:45)
DX: O71.3 Obstetric laceration of cervix (principal); Z37.0 Single live birth; O70.0 First degree perineal laceration during delivery; Z3A.39 39 weeks gestation of pregnancy
CPT/HCPCS: 36430; 76856; 85014; 85018; 85025; 85610; 85730; 86592; 86644; 86850; 86900; 86901; 86920; 86945; 87340; 99464; G0463; J0131; J0690; J2210; J2370; J2590; J3010; J7030; J7120; P9016